=== PATIENT | female | born 1960 | race Caucasian/White ===

== ENCOUNTER 2023-03-31 07:50 | Day surgery (SDC) | payer BC ==
[~2023-03-31 07:50] MED LIST: Sodium Chloride 0.9% 10 ML Syringe FLUSH PRN; Sodium Chloride 0.9% 10 ML Syringe FLUSH SCH
[2023-03-31] MEDS ORDERED: ceFAZolin 2 GM Vial ONE (08:07)
[2023-03-31] MEDS ORDERED: Ondansetron 4 MG/2 ML SDV ONE (08:07)
[2023-03-31] MEDS ORDERED: Lactated Ringers 1,000 ML ONE ×2 (08:07→10:02)
[2023-03-31] MEDS ORDERED: Propofol 200 MG/20 ML SDV ONE ×2 (08:07→10:42)
[2023-03-31] MEDS ORDERED: Ketorolac 30 MG/ML SDV ONE (08:07)
[2023-03-31] MEDS ORDERED: fentaNYL 100 MCG/2 ML SDV ONE (08:08)
[2023-03-31] MEDS ORDERED: Midazolam 1 MG/ML 2 ML SDV ONE (08:08)
[2023-03-31] MEDS ORDERED: Ketamine 200 MG/20 ML MDV ONE (08:08)
[2023-03-31] MEDS: Lactated Ringers 1,000 ML IV SCH (08:15)
[2023-03-31] MEDS: Pregabalin 25 MG Cap PO SCH (10:15)
[2023-03-31] MEDS ORDERED: Midazolam 1 MG/ML 2 ML SDV IVPUSH PRN (10:16)
[2023-03-31] MEDS ORDERED: ePHEDrine 50 MG/ML SDV IVPUSH PRN (10:16)
[2023-03-31] MEDS ORDERED: fentaNYL 100 MCG/2 ML SDV IVPUSH PRN (10:16)
[2023-03-31] MEDS: oxyCODONE ER 10 MG TAB.ER PO SCH (10:16)
[2023-03-31] MEDS ORDERED: HYDROmorphone 0.5 MG/0.5 ML Syringe IVPUSH PRN (10:16)
[2023-03-31] MEDS ORDERED: diphenhydrAMINE 50 MG/ML SDV IVPUSH PRN (10:16)
[2023-03-31] MEDS ORDERED: Ondansetron 4 MG/2 ML SDV IVPUSH PRN (10:16)
[2023-03-31] MEDS ORDERED: Albuterol 0.083% 2.5 MG/3 ML Neb Soln NEB PRN (10:16)
[2023-03-31] MEDS ORDERED: Phenylephrine 1% 10 MG/ML SDV IV PRN (10:16)
[2023-03-31] MEDS: Acetaminophen 325 MG Tab PO SCH (10:17)
[2023-03-31] MEDS ORDERED: Phenylephrine 1% 10 MG/ML SDV ONE (10:44)
[2023-03-31] MEDS ORDERED: HYDROmorphone 0.5 MG/0.5 ML Syringe ONE (10:44)
[2023-03-31] MEDS: Vancomycin 1 GM SDV ONE (10:59)
[2023-03-31] MEDS: Morphine 8 MG, EPINEPHrine 0.3 MG, Cefuroxime 750 MG, Ketorolac 30 MG, Sodium Chloride ... PRN (10:59)
[2023-03-31] MEDS: Tranexamic Acid 1,000 MG/10 ML Vial ONE (10:59)
== END 2023-03-31 15:25 | disposition home or self-care (01) ==
LOC: JD.SDS 07:50
PROVIDERS: ATTEND Orthopaedic Surgery
DX: M16.12 Unilateral primary osteoarthritis, left hip (principal); E11.9 Type 2 diabetes mellitus without complications; I10 Essential (primary) hypertension; F41.9 Anxiety disorder, unspecified; K21.9 Gastro-esophageal reflux disease without esophagitis; J45.909 Unspecified asthma, uncomplicated; F32.A Depression, unspecified; Z79.84 Long term (current) use of oral hypoglycemic drugs; Z79.82 Long term (current) use of aspirin; Z79.899 Other long term (current) drug therapy; Z98.890 Other specified postprocedural states
CPT/HCPCS: 0055T; 27130; 36415; 73501; 82947; 86850; 86900; 86901; 97116; 97161; A9270; C1713; C1776; J0171; J0690; J0697; J1170; J1885; J2250; J2270; J2371; J2405; J2704; J3010; J3370; J7030; J7120; 01214; J3490